=== PATIENT | female | born 1985 | race Caucasian/White ===

== ENCOUNTER 2018-08-30 12:55 | Inpatient (IN) | payer MEDICAID ==
[2018-08-30] MEDS ORDERED: CARBOPROST 250 MCG INJ IM ×2 (14:30→21:00)
[2018-08-30] MEDS ORDERED: MISOPROSTOL 200 MCG TAB PR ×2 (14:30→21:00)
[2018-08-30] MEDS ORDERED: BUTORPHANOL 2 MG INJ IV (14:30)
[2018-08-30] MEDS: AMPICILLIN 2 GM/NS (PMX) 100 ML IV (14:30)
[2018-08-30] MEDS ORDERED: BUTORPHANOL 1 MG INJ IV (14:30)
[2018-08-30] MEDS ORDERED: METHYLERGONOVINE 0.2 MG INJ IM ×2 (14:30→21:00)
[2018-08-30] MEDS ORDERED: OXYTOCIN 30 UNITS/LR 500 ML IV ×4 (14:30→21:00)
[2018-08-30] MEDS ORDERED: LIDOCAINE 1% (MPF) 30 ML INJ INJ (14:30)
[2018-08-30] MEDS: LACTATED RINGER'S 1,000 ML IV ×3 (15:15→16:47)
[2018-08-30 15:40] LABS: ADD MAN DIFF? NO
[2018-08-30 15:44] LABS: BASOPHIL # 0.1 10^3/ul (0.0-0.1); BASOPHILS % 0.7 % (0.0-2.0); EOSINOPHILS # 0.2 10^3/ul (0.0-0.5); HEMATOCRIT 33.5 % (37.0-47.0); HEMOGLOBIN 10.4 g/dl (12.0-16.0); LYMPHOCYTES # 1.6 10^3/ul (0.8-2.9); LYMPHOCYTES % 22.3 % (15.0-51.0); MEAN CORPUSCULAR HEMOGLOBIN 25.2 pg (29.0-33.0); MEAN CORPUSCULAR VOLUME 81.1 fl (82.0-101.0); MONOCYTE # 0.4 10^3/ul (0.3-0.9); NEUTROPHIL # 5.1 10^3/ul (1.6-7.5); NEUTROPHILS % 69.1 % (39.0-77.0); RED BLOOD COUNT 4.13 10^6/ul (4.20-5.40); RED CELL DISTRIBUTION WIDTH 16.4 % (11.5-14.5)
[2018-08-30 15:44] LABS: WHITE BLOOD COUNT 7.4 10^3/ul (4.8-10.8)
[2018-08-30 15:47] LABS: POSITIVE DIFF @See below
[2018-08-30 16:01] LABS: INR 0.83; PROTIME 11.5 Sec (11.9-14.9); PT RATIO 0.9
[2018-08-30 16:02] LABS: PARTIAL THROMBOPLASTIN TIME 29.6 Sec (23.0-35.0)
[2018-08-30 16:03] LABS: PLATELET COUNT 155 10^3/UL (140-415)
[2018-08-30 16:13] LABS: AMPHETAMINE/METHAMPHETAMINE Negative (NEGATIVE); BARBITURATES Negative (NEGATIVE); BENZODIAZEPINES Negative (NEGATIVE); CANNABINOIDS Negative (NEGATIVE); COCAINE Negative (NEGATIVE); OPIATES Negative (NEGATIVE)
[2018-08-30] MEDS ORDERED: ONDANSETRON 4 MG INJ (16:46)
[2018-08-30] MEDS ORDERED: morphine SULFATE/PF (10 MG/10 ML) INJ (16:46)
[2018-08-30] MEDS: CITRIC ACID/NA CITRATE 30 ML CUP PO (16:47)
[2018-08-30] MEDS ORDERED: KETOROLAC 30 MG INJ (16:47)
[2018-08-30] MEDS ORDERED: METOCLOPRAMIDE 10 MG INJ (16:47)
[2018-08-30] MEDS ORDERED: PHENYLephrine 10 MG INJ (16:47)
[2018-08-30 16:51] LABS: HEPATITIS B SURFACE ANTIGEN NEGATIVE (NEGATIVE)
[2018-08-30] MEDS: CEFAZOLIN 2 GM/50 ML (PMX) 50 ML IVPB (17:00)
[2018-08-30 17:33] LABS: AADO2 Cord Arterial 55.1 mmHg; Arterial Cord Blood pCO2 65.8 mmHG (25-50); CBA Base Excess 0.8 mmol/L; CBA COHb 0.5 %; CBA Total Hemglobin 16.4 g/dl; Cord Blood Arterial pO2 15.8 mmHG (15.0-45.0); Fraction OxyHgb Cord Arterial 30.3 %; MODE ROOM AIR; MetHgb Cord Arterial 1.8 %; Sample Type CBA; Site CORD
[2018-08-30 17:34] LABS: CBV Base Excess -0.8 mmol/L; CBV COHb 1.5 %; CBV Oxygen Sat 70.8 mmHG; CBV Total Hemglobin 17.2 g/dl; Cord Blood Venous AADO2 57.1 mmHg; Cord Blood Venous pO2 34.2 mmHG (15.0-45.0); Fraction OxyHgb Cord Venous 68.9 %; MODE ROOM AIR; MetHgb Cord Venous 1.2 %; Sample Type CBV; Site CORD
[2018-08-30] MEDS: OXYTOCIN 30 UNITS/LR 500 ML IV ×3 (18:08→21:00)
[2018-08-30] MEDS ORDERED: AMPICILLIN 1 GM/NS (PMX) 50 ML IV (18:30)
[2018-08-30] MEDS ORDERED: NACL 0.9% 3 ML SYG IV (21:00)
[2018-08-30] MEDS ORDERED: LANOLIN HPA 1 PKT TOP (21:00)
[2018-08-30] MEDS ORDERED: NA PHOSPHATE/BIPHOS 133 ML ENEMA PR (21:00)
[2018-08-30] MEDS ORDERED: NALOXONE (0.4 MG/ML) INJ IV (22:00)
[2018-08-30] MEDS ORDERED: DIPHENHYDRAMINE 50 MG INJ IV (22:00)
[2018-08-30] MEDS ORDERED: HYDROmorphONE 0.5 MG/0.5 ML SYG IV ×2 (22:00)
[2018-08-30] MEDS ORDERED: ONDANSETRON 4 MG INJ IV (22:00)
[2018-08-30] MEDS ORDERED: morphine 2 MG INJ IV ×3 (22:00)
[2018-08-30] MEDS: IBUPROFEN 800 MG TAB PO (22:00)
[2018-08-30] MEDS: KETOROLAC 30 MG INJ IV (22:34)
[2018-08-31] MEDS: LACTATED RINGER'S 1,000 ML IV (03:35)
[2018-08-31] MEDS: IBUPROFEN 800 MG TAB PO ×3 (06:00→22:36)
[2018-08-31 08:23] LABS: ADD MAN DIFF? NO
[2018-08-31 08:35] LABS: ABNORMAL IP MESSAGE 1; BASOPHIL # 0.1 10^3/ul (0.0-0.1); BASOPHILS % 0.6 % (0.0-2.0); EOSINOPHILS # 0.1 10^3/ul (0.0-0.5); EOSINOPHILS % 1.5 % (0.0-7.0); HEMATOCRIT 28.4 % (37.0-47.0); HEMOGLOBIN 8.9 g/dl (12.0-16.0); LYMPHOCYTES # 1.6 10^3/ul (0.8-2.9); LYMPHOCYTES % 16.8 % (15.0-51.0); MEAN CORPUSCULAR HEMOGLOBIN 25.6 pg (29.0-33.0); MEAN CORPUSCULAR HGB CONC 31.3 g/dl (32.0-37.0); MEAN CORPUSCULAR VOLUME 81.6 fl (82.0-101.0); MONOCYTE # 0.5 10^3/ul (0.3-0.9); MONOCYTES % 5.5 % (0.0-11.0); PLATELET COUNT 138 10^3/UL (140-415); RED BLOOD COUNT 3.48 10^6/ul (4.20-5.40); RED CELL DISTRIBUTION WIDTH 16.8 % (11.5-14.5)
[2018-08-31 08:35] LABS: WHITE BLOOD COUNT 9.4 10^3/ul (4.8-10.8)
[2018-08-31 08:39] LABS: POSITIVE DIFF @See below
[2018-08-31] MEDS: METHADONE 10 MG TAB PO (10:05)
[2018-08-31] MEDS: KETOROLAC 30 MG INJ IV (14:33)
[2018-08-31 14:44] LABS: RAPID PLASMA REAGIN NONREACTIVE (NR)
[2018-08-31] MEDS: HYDROCODONE/APAP (5/325) TAB PO (20:02)
[2018-08-31] MEDS: hydrOXYzine HCL 10 MG TAB PO (23:24)
[2018-09-01] MEDS: IBUPROFEN 800 MG TAB PO ×3 (06:03→21:32)
[2018-09-01] MEDS: METHADONE 10 MG TAB PO (09:29)
[2018-09-01] MEDS: hydrOXYzine HCL 10 MG TAB PO (22:39)
[2018-09-02] MEDS: IBUPROFEN 800 MG TAB PO ×2 (05:33→14:52)
[2018-09-02] MEDS: MEASLES,MUMPS,RUBELLA VACCINE INJ SC* (09:00)
[2018-09-02] MEDS: hydrOXYzine HCL 10 MG TAB PO (09:40)
[2018-09-02] MEDS: METHADONE 10 MG TAB PO (09:40)
[2018-09-02] MEDS: DIPHTH/TET/ACEL PERTUSS (ADULT) 0.5 ML VIAL IM* (14:53)
== END 2018-09-02 16:00 | disposition home or self-care (01) | DRG 788 ==
LOC: OBT 12:55 → L-D 12:55 → OBT 14:14 → L-D 14:10 → PP1 20:28
PROC: 10D00Z1 Extraction of Products of Conception, Low, Open Approach (ICD-10-PCS; principal; 2018-08-30 16:45)
DX: O76 Abnormality in fetal heart rate and rhythm complicating labor and delivery (principal); Z3A.38 38 weeks gestation of pregnancy; Z37.0 Single live birth
CPT/HCPCS: 36415; 36600; 80307; 82803; 85025; 85610; 85730; 86592; 86850; 86900; 86901; 87340; 88307; 90715; 99464